=== PATIENT | male | born 1955 | race Caucasian/White ===

== ENCOUNTER 2019-01-08 07:25 | Outpatient (CLI) | payer BC ==
--- NOTE | 2019-01-08 09:47 | MRI ---
MRI OF RIGHT SHOULDER PERFORMED WITHOUT CONTRAST ENHANCEMENT: HISTORY: Right shoulder pain with limited range of motion since falling in July. FINDINGS: There is moderate arthrosis of the AC joint with a laterally downsloping acromion. There is a full-thickness minimally retracted [id number] tear. The tear begins anteriorly and ex tends into the posterior fibers. In some areas there is a thin outer bursal fiber still present. It appears to involve the majority of the supraspinatus tendon with some component of the tear involvin g the undersurface of the anterior fibers of the infraspinatus. There is some tendinosis of the subscapularis tendon. The biceps tendon is normal in position within the bicipital groove. The bicipital labral complex shows some increased signal change, not true fluid density, seen along t he undersurface of the superior labrum at the biceps anchor. This would suggest that this represents a chronic SLAP-type tear. The inferior glenohumeral ligamentous and labral complex is normal. There is no significant muscle atrophy demonstrated. IMPRESSION: 1. Full-thickness partial width essentially minimally retracted supraspinatus tendon tear also with some involvement of the anterior fibers of the infraspinatus tendon. 2. No significant rotator cuff muscle atrophy. 3. Chronic-appearing superior labrum anterior to posterior-type tear of the superior labrum with abbie e increased signal change, not true fluid density along the undersurface of the labrum which would galvez ggest chronic tear and scarring. POS: [facility]
== END 2019-01-08 07:26 | disposition home or self-care (01) ==
LOC: BICMRI 07:25
PROVIDERS: ATTEND Orthopaedic Surgery
DX: M25.511 Pain in right shoulder (principal); M75.101 Unspecified rotator cuff tear or rupture of right shoulder, not specified as traumatic; S43.401A Unspecified sprain of right shoulder joint, initial encounter

== ENCOUNTER 2019-05-14 07:04 | Outpatient (CLI) | payer BC ==
[2019-05-14 11:30] LABS: #Basophils 0.1 thou/uL (0.0-0.2); #Eosinphils 0.1 thou/uL (0.0-0.7); #Lymphocytes 1.9 thou/uL (1.20-3.40); #Monocytes 0.6 thou/uL (0.11-0.59); %Basophils 0.7 % (0.0-1.0); %Eosinophils 1.8 % (0.0-10.0); %Lymphocytes 24.2 % (21.0-51.0); %Monocytes 7.9 % (0.0-10.0); %Neutrophils 65.4 % (42.0-75.0); Hemoglobin 13.7 g/dL (14.0-18.0); Mean Corpuscular HGB CONC 33.9 g/dL (32.0-36.0); Mean Corpuscular Hemoglobin 31.8 pg (27.0-31.0); Mean Corpuscular Volume 93.9 fL (78.0-98.0); Mean Platelet Volume 8.8 fL (7.4-10.4); Platelet Count 224 thou/uL (130-400); RBC Distribution Width 11.6 % (11.5-14.5); Red Blood Cell (RBC) Count 4.31 mill/uL (4.70-6.10); White Blood Cell (WBC) Count 7.6 thou/uL (4.8-10.8)
[2019-05-14 11:42] LABS: Anion Gap 9 mmol/L (10-20); BUN (Urea Nitrogen) 13 mg/dL (8.4-25.7); Calc. Creatinine Clearance 0 mL/min (70-130); Calcium 9.8 mg/dL (7.8-10.44); Carbon Dioxide 29 mmol/L (23-31); Chloride 103 mmol/L (98-107); Estimated GFR-MDRD 66; Glucose 92 mg/dL (80-115); Potassium 4.3 mmol/L (3.5-5.1); Sodium 137 mmol/L (136-145)
== END 2019-05-14 07:05 | disposition home or self-care (01) ==
LOC: LABBT 07:04
PROVIDERS: ATTEND Orthopaedic Surgery
DX: Z01.818 Encounter for other preprocedural examination (principal); M75.101 Unspecified rotator cuff tear or rupture of right shoulder, not specified as traumatic
CPT/HCPCS: 80048; 85025; 93005; 93010

== ENCOUNTER 2019-05-16 07:36 | Day surgery (SDC) | payer BC ==
[2019-05-14 10:50] VITALS: BMI 32.4
[2019-05-16] MEDS ORDERED: Fentanyl 100 MCG/2 ML VIAL ONE ×2 (08:30→08:39)
[2019-05-16] MEDS ORDERED: Lidocaine 1% w/Epinephrine 1:100K 20 ML VIAL ONE (08:30)
[2019-05-16] MEDS ORDERED: Bupivacaine 0.25% HCL 30 ML VIAL ONE (08:30)
[2019-05-16] MEDS ORDERED: Midazolam HCl 2 mg/2 ml Vial ONE (08:30)
[2019-05-16] MEDS ORDERED: Ropivacaine 0.2% 550 ML 550 ML NERVE BLCK SCH (09:04)
[2019-05-16] MEDS ORDERED: Zolpidem Tartrate 5 MG TAB PO PRN (09:04)
[2019-05-16] MEDS ORDERED: Ondansetron PF 4 MG/2 ML Vial IVP PRN (09:04)
[2019-05-16] MEDS ORDERED: Acetaminophen 325 MG TAB PO PRN (09:04)
[2019-05-16] MEDS ORDERED: Ketorolac Tromethamine 30 MG/ML VIAL IVP PRN (09:04)
[2019-05-16] MEDS ORDERED: HYDROcodone/Acetaminophen 10/325 mg Tablet PO PRN ×2 (09:04)
[2019-05-16] MEDS ORDERED: Promethazine HCl 25 MG/ML VIAL IM PRN ×2 (09:04→11:00)
[2019-05-16] MEDS ORDERED: Fentanyl 100 MCG/2 ML VIAL IV PRN (09:05)
[2019-05-16] MEDS ORDERED: Meperidine HCl/PF 25 MG/ML VIAL SLOW IVP PRN (11:00)
[2019-05-16] MEDS ORDERED: HYDROmorphone 2 MG/ML VIAL SLOW IVP PRN (11:00)
[2019-05-16] MEDS ORDERED: Dexamethasone 20 MG/5 ML VIAL ONE (12:41)
[2019-05-16] MEDS ORDERED: PROPOFOL 200 MG/20 ML VIAL ONE (12:41)
[2019-05-16] MEDS ORDERED: Ropivacaine 0.2% HCl/PF (40 MG/20 ML VIAL) ONE (12:41)
[2019-05-16] MEDS ORDERED: Lidocaine 1% PF 5 ML VIAL ONE (12:41)
[2019-05-16] MEDS ORDERED: ePHEDrine/0.9% NaCl/PF SYRINGE 50 mg/10 ml ONE (12:41)
[2019-05-16] MEDS ORDERED: Ropivacaine 0.5% HCl/PF (150 MG/30 ML VIAL) ONE (12:41)
[2019-05-16] MEDS ORDERED: Ondansetron PF 4 MG/2 ML Vial ONE (12:41)
--- NOTE | 2019-05-16 16:06 | OP ---
DATE OF PROCEDURE: 05/16/2019 PREOPERATIVE DIAGNOSES: Right shoulder rotator cuff tear and degenerative SLAP tear leading to biceps instability. POSTOPERATIVE DIAGNOSES: Right shoulder rotator cuff tear and degenerative SLAP tear leading to biceps instability. PROCEDURES PERFORMED: 1. Right shoulder arthroscopy. 2. Right shoulder arthroscopic rotator cuff repair. 3. Right shoulder open biceps tenodesis. STRATEGIC ADVISOR: Kevin Mendoza PA-C ESTIMATED BLOOD LOSS: Minimal. COMPLICATIONS: None. ANESTHESIA: The patient did have a general anesthetic as well as a preoperative block. IMPLANTS: We used one 4.75 SwiveLock for our cuff repair and we used a 7 x 23 BioComposite Bio-Tenodesis screw for biceps tenodesis. DISPOSITION: He did go to recovery room in stable condition. INDICATIONS: This is a 64-year-old male, who comes in complaining of weakness and pain, trying to do overhead activities and was found on MRI scan to have a rotator cuff tear. At this time, he opted to have surgery. DESCRIPTION OF PROCEDURE: After all appropriate consent forms were explained and signed, he was taken back to the operating room and at this time was given general anesthetic. Once the level of anesthesia was appropriate, the patient was rolled in the left lateral decubitus position with all bony prominences well padded. An axillary roll was placed beneath the left axilla and a ross bag was inflated to hold in this position. The arm was then taken through full range of motion and then suspended with 15 pounds in standard arthroscopic fashion. The right shoulder and upper extremity were then prepped and draped in standard surgical fashion. Bony anatomical landmarks were drawn out and the subacromial space was infiltrated with lidocaine with epinephrine. A posterior portal was established. Scope was placed into the glenohumeral joint. Anterior working portal was then made using a needle localization technique. Diagnostic arthroscopy commenced in the glenohumeral joint. The articular surface of the humeral head and glenoid were in good condition. Axillary pouch showed no loose bodies. Subscapularis was found to be intact. Biceps tendon was found to be unstable with the biceps insertion site being portion of degenerative SLAP tear leading to the instability. Superior to the biceps tendon, there was also evidence for significant scuffing of the overlying cuff secondary to biceps instability. There was also found to be some tearing and degeneration of the posterior superior labrum as well as the inferior labrum. All these areas were debrided with a shaver. A needle was then used to torrez the biceps tendon and stitch was placed through this prior to removing the biceps tendon off the superior labrum using a SERFAS energy probe. At this time, the scope was replaced into the subacromial space. Lateral working portal was made. Bursa was removed from off the underlying cuff. A far anterior rotator cuff tear was noted. We did remove the soft tissue from the undersurface of the acromion, but no bony decompression was performed. This rotator cuff tear was found to be V-shaped and was not found to be full-thickness, but rather did have the most inferior portion of the tendon intact against the joint surface. At this time, we placed a PassPort cannula laterally. We then used a scorpion device to place one [id number] stitch at the apex of the V, followed by placing an inverted mattress stitch using the FiberTape punching and placing 4.75 SwiveLock for a speed fix of this very small tear. At this time, scope was removed. Shoulder was drained. A 15 blade was used to incise down through skin. Bovie was used to coagulate any brisk bleeding. We then entered the deltoid fascia sharply. We used finger dissection to come through the deltoid to the underlying transverse humeral ligament. This was opened up and the biceps tendon was pulled out into the wound. The tendon was sutured and the intra-articular portion was then removed. Once we cleaned up the bicipital groove out, we then placed our pin. We reamed with a 7 mm reamer to a depth of 25 and placed our 7 x 23 BioComposite Bio-Tenodesis screw without any issues. Sutures were tied over top of this, so the screw could not back out. At this time, the wound was closed upon itself and was thoroughly irrigated with saline. We then ran a Vicryl to close our deltoid fascia, followed by 2-0 Vicryl and nylon sutures to close the skin. Bulky sterile dressing was applied. The patient was then awakened. He was taken to the recovery room in stable condition. All counts were correct at the end of the case and he did receive preoperative IV antibiotics. Job ID: [id number]
== END 2019-05-16 13:50 | disposition home or self-care (01) ==
LOC: SDC 07:36
PROVIDERS: ATTEND Orthopaedic Surgery
DX: M75.111 Incomplete rotator cuff tear or rupture of right shoulder, not specified as traumatic (principal); S43.431A Superior glenoid labrum lesion of right shoulder, initial encounter
CPT/HCPCS: A4306; C1713; J0690; J1100; J2001; J2250; J2405; J2704; J2795; J3010; S0020

== ENCOUNTER 2021-07-29 07:32 | Outpatient (CLI) | payer BC | END 2021-07-29 07:33 | disposition home or self-care (01) | LOC: BICULT 07:32 | PROVIDERS: ATTEND Family Medicine | DX: R10.11 Right upper quadrant pain (principal); K80.20 Calculus of gallbladder without cholecystitis without obstruction | CPT/HCPCS: 76705 ==

== ENCOUNTER 2022-01-17 15:51 | Outpatient (CLI) | payer MEDICARE ==
[2022-01-17 17:28] LABS: #Basophils 0.1 10x3/uL (0.0-0.2); #Eosinphils 0.2 10x3/uL (0.0-0.5); #Monocytes 0.6 10x3/uL (0.0-1.1); #Neutrophils 6.4 10x3/uL (1.5-8.4); %Basophils 0.8 % (0.0-2.0); %Eosinophils 1.6 % (0.0-6.0); %Lymphocytes 24.2 % (18.0-47.0); %Monocytes 6.3 % (0.0-10.0); %Neutrophils 66.9 % (40.0-75.0); Hemoglobin 12.8 g/dL (13.5-17.5); Mean Corpuscular HGB CONC 34.2 g/dL (32.0-36.0); Mean Corpuscular Hemoglobin 31.3 pg (27.0-33.0); Mean Corpuscular Volume 91.4 fl (81.2-95.1); Mean Platelet Volume 11.5 fl (7.4-10.4); Platelet Count 240 10x3/uL (150-450); RBC Distribution Width 12.4 % (11.5-14.5); Red Blood Cell (RBC) Count 4.09 10x6/uL (4.32-5.72); White Blood Cell (WBC) Count 9.5 10x3/uL (3.5-10.5)
[2022-01-17 17:48] LABS: ALT (SGPT) 31 U/L (8-55); AST (SGOT) 25 U/L (5-34); Albumin 4.4 g/dL (3.4-4.8); Alkaline Phosphatase 49 U/L (40-110); Anion Gap 12 mmol/L (10-20); BUN (Urea Nitrogen) 17 mg/dL (8.4-25.7); Bilirubin, Direct 0.2 mg/dL (0.1-0.3); Bilirubin, Total 0.4 mg/dL (0.2-1.2); Calc. Creatinine Clearance 0 mL/min (70-130); Calcium 9.4 mg/dL (7.8-10.44); Carbon Dioxide 24 mmol/L (23-31); Chloride 105 mmol/L (98-107); Estimated GFR 63; Globulin 2.6 g/dL (2.4-3.5); Glucose 88 mg/dL (80-115); Sodium 137 mmol/L (136-145)
== END 2022-01-17 15:52 | disposition home or self-care (01) ==
LOC: LABBT 15:51
PROVIDERS: ATTEND Surgery
DX: Z01.818 Encounter for other preprocedural examination (principal); Z20.822 Contact with and (suspected) exposure to COVID-19
CPT/HCPCS: 80053; 80076; 85025; 87811; 93005; 93010

== ENCOUNTER 2022-03-15 12:21 | Outpatient (CLI) | payer MEDICARE, OTHER | END 2022-03-15 12:22 | disposition home or self-care (01) | LOC: BICCT 12:21 | PROVIDERS: ATTEND Family Medicine | DX: R10.11 Right upper quadrant pain (principal); R93.2 Abnormal findings on diagnostic imaging of liver and biliary tract; J98.4 Other disorders of lung; Z90.49 Acquired absence of other specified parts of digestive tract; Z98.890 Other specified postprocedural states | CPT/HCPCS: 74178 ==